=== PATIENT | female | born 1980 | race Caucasian/White ===

== ENCOUNTER 2019-08-21 19:33 | Emergency (ER) | payer SELFPAY ==
--- NOTE | 2019-08-21 21:41 | RAD ---
TWO VIEWS OF THE NECK SOFT TISSUES: 08/21/19 COMPARISON: None. HISTORY: Lower tooth abscess with ear pain and left throat pain since yesterday. FINDINGS: Two views of the neck soft tissues shows no evidence of prevertebral soft tissue swelling. No swellin g of the epiglottis is seen. No radiopaque foreign body is seen. IMPRESSION: No significant prevertebral soft tissue swelling. POS: [facility]
== END 2019-08-21 21:54 | disposition home or self-care (01) ==
LOC: NAV ERS 19:33
DX: R07.0 Pain in throat (principal); H92.02 Otalgia, left ear; E66.9 Obesity, unspecified
CPT/HCPCS: 70360; 87081; 87430

== ENCOUNTER 2022-04-25 01:16 | Emergency (ER) | payer BC ==
[2022-04-25] MEDS ORDERED: Acetaminophen 500 MG TAB ONE (01:32)
[2022-04-25] MEDS ORDERED: methylPREDNISolone Acetate 40 mg/ml Vial ONE (02:17)
== END 2022-04-25 02:50 | disposition home or self-care (01) ==
LOC: NAV ERS 01:16
DX: U07.1 COVID-19 (principal); J06.9 Acute upper respiratory infection, unspecified; J20.5 Acute bronchitis due to respiratory syncytial virus; E66.9 Obesity, unspecified; Z20.822 Contact with and (suspected) exposure to COVID-19; Z87.891 Personal history of nicotine dependence
CPT/HCPCS: 87804; 96372; 99283; J1030; U0003; U0005